=== PATIENT | female | born 1980 | race Caucasian/White ===

== ENCOUNTER 2019-03-22 18:34 | Emergency (ER) | payer SELFPAY ==
[~2019-03-22] VITALS: Ht 170.2 cm; Wt 86.4 kg
[2019-03-22 18:37] VITALS: Ht 170.2 cm; Wt 86.4 kg
[2019-03-22] MEDS ORDERED: ESTRACE1 MG PO (18:39)
[2019-03-22] MEDS ORDERED: PAXIL30 MG PO (18:39)
[2019-03-22] MEDS ORDERED: HYDROXYZINE HCL50 MG PO (18:40)
[2019-03-22] MEDS ORDERED: ROBAXIN500 MG PO (18:40)
[2019-03-22] MEDS ORDERED: BACLOFEN20 M1 PO (19:08)
[2019-03-22] MEDS ORDERED: VOLTAREN75 MG PO (19:08)
--- NOTE | 2019-03-22 19:11 | NUR ---
DR BHATTI NOTIFIED AND REVIEWED PT's BEHAVIOR AND ASSESSMENT. PT IS LOW RISK PER DR BHATTI. DR BHATTI STATED TO GIVE RESOURCES TO PT AT TIME OF DISCHARGE. NO FURTHER ORDERS AT THIS TIME. RESOSOURCES REVIEWED WITH PT AND SHE VERBALIZED UNDERSTANDING.
[2019-03-22 19:56] VITALS: BP 128/75
== END 2019-03-22 19:55 | disposition home or self-care (01) ==
LOC: D.ER 18:34
DX: M54.31 Sciatica, right side (principal)